=== PATIENT | male | born 1945 | race Caucasian/White ===

== ENCOUNTER → 2021-02-07 12:45 | Outpatient (CLI) | payer OTHER, SELFPAY ==
--- NOTE | 2021-02-07 12:48 | RAD_ITS ---
PROCEDURE: LUMBAR MYELOGRAM DATE OF EXAMINATION: 02/07/2021. INDICATION: Male, 75 years old. Low back pain. PHYSICIAN: Ritesh Irizarry M.D. CONSENT: The patient''s history and physical findings were reviewed. The lumbar myelogram procedure was discussed with the patient prior to signing a consent. SEDATION: Local anesthesia with 3 mL of 1% lidocaine was used. FLUOROSCOPY TIME (if supplied): (2:19) minutes/seconds. 3 images were obtained. Injection Information: 10 cc of ISOVUE-M 200 Number of images obtained: 3 TECHNIQUE: Digital fluoroscopy was used to identify a safe approach for the lumbar myelogram. The back was prepped and draped in usual fashion. Local anesthesia was utilized. Under fluoroscopic guidance a 22-gauge spinal needle was inserted into the spinal canal at the L4-5 level. 10 mL of Isovue 200 M was injected into the spinal canal. There is good opacification of the spinal fluid. The nerve root sheaths are asymmetrically identified. Multilevel disc space narrowing and anterior extradural defects. MRI will follow. RAD/Lumbar Myelogram IMPRESSION: Lumbar Myelogram performed for CT lumbar spine following the myelogram. Electronically Signed: Ritesh Irizarry MD at 14:37 EST , Service support ,
--- NOTE | 2021-02-07 12:49 | CT_ITS ---
STUDY: CT LUMBAR SPINE WITH INTRATHECAL CONTRAST (LUMBAR CT MYELOGRAM) REASON FOR EXAM: Male, 75 years old. Stenosis RADIATION DOSAGE (If Supplied By Facility): CTDIvol = ( 16.74 ) mGy, DLP = ( 545.18 ) mGycm TECHNIQUE: Transaxial images were obtained from the L1 vertebra through the S1 vertebrae, following intrathecal administration of 10 ml of ISOVUE-M 200 contrast material, performed by Dr. Irizarry. Please refer to this physicians technical notes for procedural details. Coronal and sagittal reconstructions were obtained. Individualized dose optimization techniques were used for this CT. COMPARISON: None. FINDINGS: Normal lumbar lordosis. There is no substantial scoliosis. Normal vertebrae of the lumbar spine. There is dependent layering of contrast material in the distal thecal sac. The conus medullaris terminates in a normal position at the L1-L2 level. There is no demonstrated cauda equina nerve root abnormality or intraspinal mass. L1-2: Minimal degree of retrolisthesis of L1 on L2. Minimal anterior defect of the thecal sac. L2-3: Moderate degree of disc space narrowing. Facet joint osteoarthritis and hypertrophy. Mild degree of thickening of the ligamenta flava. Minimal bilateral neural foraminal stenosis. L3-4: Moderate degree of disc space narrowing and disc degeneration. Posterior spondylosis worse on the left side of the midline causing deformity of the thecal sac at that site. Facet joint osteoarthritis and hypertrophy. Mild degree of bilateral neural foraminal stenosis. L4-5: Marked degree of disc space narrowing. Posterior spondylosis. Marked degree of bilateral neural foraminal stenosis worse on the right side. Hypertrophy of the facet joints. L5-S1: Moderate degree of disc space narrowing. Facet joint osteoarthritis. Mild to moderate degree of bilateral neural foraminal stenosis worse on the left side. There are degenerative changes of the bilateral sacroiliac joints. Atherosclerotic plaque formation of the abdominal aorta and the major visceral branches. CT/Spine Lumbar WITH Contrast IMPRESSION: Multilevel disc space narrowing with a bilateral neural foraminal stenosis as described. Electronically Signed: Ritesh Irizarry MD at 14:18 EST , Service support ,
[2021-02-07 13:08] VITALS: BP 156/77; PULSE 90; RESP 16; TEMP 36.6; O2SAT 99; BMI 28.7
[2021-02-07] MEDS: Lidocaine 2% (5ml sdv) 5 ML VIAL.MPF INFILT (13:30)
[2021-02-07 14:07] VITALS: BP 147/77; PULSE 91; RESP 16; O2SAT 96
[2021-02-07 14:32] VITALS: BP 143/79; PULSE 85; RESP 16; O2SAT 94
== END | disposition home or self-care (01) ==
PROVIDERS: PCP Family Medicine; Referring Provider Orthopaedic Surgery; Visit Provider Orthopaedic Surgery
DX: M48.061 Spinal stenosis, lumbar region without neurogenic claudication (principal); M47.26 Other spondylosis with radiculopathy, lumbar region
CPT/HCPCS: 62304; 72132; Q9965

== ENCOUNTER 2023-09-30 09:57 | Emergency (ER) | payer OTHER, SELFPAY ==
[2023-09-30 09:57] VITALS: BP 204/75; PULSE 61; RESP 22; TEMP 35.8; O2SAT 96; BMI 29.7
--- NOTE | 2023-09-30 10:37 | EDS_ITS ---
HPI HPI - GI History of Present Illness Chief Complaint: Flank Pain Detail of Chief Complaint: Left flank, lower quadrant and back pain. Abdominal Pain/Flank Pain Onset: Today and Hours Context: Sudden Onset Timing: Continuous Quality: Sharp Location: Left Flank Current Severity: Mild Maximum Severity: Moderate Worsened by: Nothing Relieved by: Nothing Nausea/Vomiting/Emesis GI Symptom: Positive for Nausea and Vomiting Onset: Today Severity: Mild Diarrhea/Melena/Hematochezia GI Symptom: Negative for Diarrhea, Melena or Hematochezia Associated Symptoms Associated Symptoms: Negative for Dysuria, Frequency, Hematuria or Urgency Narrative Narrative: 78-year-old male history of kidney stones never needed surgery to have them removed. Also prior appendectomy and cholecystectomy. This morning around 6:30 AM he had sudden onset of left flank pain consistent with his prior kidney stones. He did have nausea vomiting associated with the pain. No fever or chills. No dysuria. No recent illness. No abdominal pain the last several days. Prior similar symptoms: Yes Recent Illness/Hospitalization: No PFSH PFSH Medical History Cholecystectomy planned Kidney stone Home Medications ?Medication ?Instructions ?Recorded ?Last Taken ?Type prednisolone 5 mg tablet 5 mg PO DAILY 09/30/23 Unknown History Allergy/AdvReac Type Severity Reaction Status Date / Time No Known Allergies Allergy Verified 09/30/23 10:21 Surgical History History of appendectomy Social History Smoking Status: Never smoker ROS ROS ED ROS Narrative Left flank and abdominal pain. Nausea and vomiting. Constitutional Constitutional ED: Denies chills or fever(s) ENT ENT ED: Denies ear pain Cardiovascular Cardiovascular: Denies chest pain Respiratory/Chest Respiratory/Chest: Denies cough or dyspnea Gastrointestinal Gastrointestinal: Reports abdominal pain, nausea and vomiting; Denies constipation, diarrhea or melena Genitourinary Genitourinary ED: Denies dysuria or hematuria Musculoskeletal Musculoskeletal: Reports back pain; Denies arthralgias Integumentary Reports abscess Neurologic Neurologic: Denies headache(s) Psychiatric Psychiatric: Denies anxiety or depression Endocrine Endocrinology: Denies polydipsia Hematologic/Lymphatic Hematologic/Lymphatic: Denies easy bleeding Allergic/Immunologic Allergic/Immunologic ED: Denies mouth swelling EXAM Physical Exam Narrative Exam Narrative: Well-appearing 78-year-old male. Vital signs are stable afebrile. 2 family members at bedside. H EENT exam unremarkable. Neck nontender. Lungs clear to auscultation. Heart regular rhythm rate about 60 no murmur. Abdomen is soft, nondistended normal bowel sounds without peritoneal signs. Mild left lower quadrant tenderness. No hernia or mass. No pulsatile mass. No distention. Right upper or right lower quadrants are unremarkable. No obstruction. Back nontender. No rash. Moving all 4 extremities. Neurovascular intact. Nontender no edema. Normal strength. Neurologically is awake and alert. Answering questions following commands. Const Vital Signs: 09/30/23 09:57 09/30/23 11:57 09/30/23 12:21 Temperature 96.5 F L 98.3 F Temperature Source Temporal Oral Pulse Rate 61 76 Respiratory Rate 22 H 16 Blood Pressure 204/75 H 165/92 H Blood Pressure Mean 118 116 Pulse Ox 96 Oxygen Delivery Method Room Air Positive well nourished and well developed; Negative for cachectic, contractures or unkempt General Appearance ED: well developed and NAD; Negative for unkempt, cachectic, contractures or pallor Nutritional Appearance: Negative for cachectic HEENT Reports moist mucous membranes normocephalic and atraumatic; Negative for trauma or tenderness Eyes PERRL and EOMs intact bilaterally General Eye ED: Negative for pale conjunctiva, scleral icterus or other Neck no lymphadenopathy, supple and no JVD Carotids: Negative for other Lymph Lymphatic: Negative for other Resp normal respiratory effort and clear to auscultation bilaterally Effort and Inspection: Negative for respiratory distress Auscultation: Negative for rales, rhonchi or wheezes Cardio regular rate, regular rhythm, S1 normal heart sound, S2 normal heart sound and no murmurs Rate: Negative for bradycardia or tachycardic Rhythm: Negative for abnormal rhythm GI non-distended and no masses; Negative for non-tender GI Narrative: Mild left lower quadrant tenderness. No hernia or mass. No pulsatile mass. No peritoneal signs. Inspection: Negative for abdominal distention Auscultation: normoactive bowel sounds Palpation: soft and tender; Negative for guarding, rigid, hepatomegaly, splenomegaly, hernia, mass, pulsatile mass or rebound tenderness present Back/Spine no CVA tenderness General Back: Negative for CVA tenderness Cervical Spine: Negative for cervical spine tenderness Thoracic Spine / Upper Back: Negative for thoracic spinal tenderness Lumbar Spine / Lower Back: Negative for lumbar spinal tenderness Extremity full ROM General Extremety ED: Negative for edema or tenderness General Extremity: Negative for edema Neuro CN's II-XII intact bilaterally and moves all extremities Sensorium / Orientation: alert, oriented to person, oriented to place and oriented to time; Negative for orientation impaired or confused Motor Exam: strength 5/5 throughout; Negative for general weakness Psych mental status grossly normal and thought process normal Appearance: Negative for unkempt Attitude: No agitated Mood & Affect: Negative for depressed, anxious or tearful Skin no wounds General Skin Exam: Negative for jaundice or pallor Lesions: no lesions Rashes: no rashes Trauma: Negative for abrasion Nails: Negative for discolored MDM MDM MDM Narrative Medical decision making narrative: 78-year-old male left flank pain history of kidney stones. CAT scan labs are pending. I will add UA. I do think this is most likely kidney stone different ial would also include UTI, diverticulitis versus other etiologies. He will be treated with IV morphine 6 mg and Zofran for nausea. Repeat exam patient doing well at 12:40 PM. His pain is well-controlled after morphine x 2. I went over his test results and his CAT scan. They are comfortable with him being discharged home. Urine strainer. [place] for pain as needed. Follow-up as needed return if worse. History & Record Review Discussion w/independent historian: Patient and Family Additional record(s) reviewed:: Prior inpatient record, Prior outpatient record, Prior ED visit and Prior labs Lab Data Attestation: I reviewed the patient's lab results. Lab results narrative: CBC normal. White count of 10. H&H is 16 and 47. Platelets 272. Electrolytes show gap 7. BUN and creatinine 23 and 1.2. Glucose 158. Urinalysis shows 250 occult blood. No nitrates. 25-50 red cells. No white cells. 1+ bacteria. Labs: Laboratory Results - last 24 hr 09/30/23 10:35 WBC 10.3 RBC 5.23 Hgb 16.1 Hct 47.6 MCV 91.0 MCH 30.8 MCHC 33.8 RDW Std Deviation 43.2 RDW Coeff of Rick 13.2 Plt Count 272 MPV 10.7 Immature Gran % (Auto) 1.100 H Neut % (Auto) 84.3 H Lymph % (Auto) 10.2 L [place] % (Auto) 4.0 Eos % (Auto) 0.0 Baso % (Auto) 0.4 Absolute Neuts (auto) 8.7 H Absolute Lymphs (auto) 1.05 Nucleated RBC % 0 Sodium 141 Potassium 3.6 Chloride 105 Carbon Dioxide 29.0 Anion Gap 7 BUN 23 H Creatinine 1.26 Estim Creat Clear Calc 56.43 Est GFR (MDRD) Af Amer 71 Est GFR (MDRD) Non-Af 59 L BUN/Creatinine Ratio 18.3 Glucose 158 H Calcium 9.3 Urine Color Yellow Urine Clarity Clear Urine pH 5.0 Ur Specific [place] 1.030 Urine Protein 30 H Urine Glucose (UA) Normal Urine Ketones Negative Urine Occult Blood 250 H Urine Nitrite Negative Urine Bilirubin Negative Urine Urobilinogen Normal Ur Leukocyte Esterase Negative Urine RBC 25-50 SEEN Urine WBC 0 SEEN Ur Squamous Epith Cells 0-5 SEEN Urine Bacteria 1+ Urine Mucus 0 SEEN Radiography Diagnostic Testing: Clinical Impression(s) from Imaging Studies Abdomen/Pelvis CT 09/30/23 11:00 IMPRESSION: Mild left hydronephrosis and left hydroureter due to a 2.5 mm calculus in the distal portion of left ureter. Multiple small bilateral parapelvic cysts more prominent on the left side. Sigmoid diverticulosis. Status post cholecystectomy. Findings suggestive of scarring at the lung bases. Electronically Signed: Ritesh Irizarry MD at 11:29 EDT , Discharge Plan Triage Chief Complaint: Flank Pain ED Provider: Jamal Leon Dx/Rx/DC Orders Prescriptions: No Action prednisolone 5 mg tablet 5 mg PO DAILY Primary Care Provider: Franco Gilbert Referrals: Franco Gilbert DO [Primary Care Provider] - Print Language: Yi
[2023-09-30 10:47] LABS: Mucous, Urine 0 SEEN /hpf (<or=2+); White Blood Cells 0 SEEN /hpf (0-5)
[2023-09-30] MEDS: Morphine 4 MG/ML Syringe 6 MG IV (10:49)
[2023-09-30 10:50] LABS: Absolute Lymphocyte Count 1.05 X10^3/uL (0.83-4.51); Absolute Neutrophil Count 8.7 X10^3/uL (2.0-7.7); Basophil# 0.04 X10^3/uL; Basophil% 0.4 % (0-1); Hematocrit 47.6 % (40-54); Hemoglobin 16.1 g/dL (13.0-16.5); Lymphocyte # 1.05 X10^3/ul (0.83-4.51); Lymphocyte % 10.2 % (19-41); Mean Corp Hgb Conc 33.8 g/dL (32-36); Mean Corpuscular Hgb 30.8 pg (27.0-32.0); Mean Platelet Vol. 10.7 fl (6.2-12.0); Monocyte# 0.41 X10^3/uL; NRBC Flagged by Analyzer 0 % (0-5); Neutrophil # 8.65 X10^3/uL (2.7-7.7); Neutrophil % 84.3 % (47-70); Platelet Count 272 K/mm3 (150-450); RBC Distribution Width CV 13.2 % (11.6-14.6); RBC Distribution Width SD 43.2 fl (35.1-43.9); Red Blood Count 5.23 M/mm3 (4.6-6.2); White Blood Count 10.3 K/mm3 (4.4-11.0)
[2023-09-30] MEDS: Ondansetron 4 MG/2 ML Vial IV (10:50)
[2023-09-30 10:56] LABS: Color, Urine Yellow (Yellow); Glucose, Dipstick Normal (Normal); Ketone-Dipstick Negative (Negative); Leukocyte Esterase-Dipstick Negative /ul (Negative); Nitrite-Dipstick Negative (Negative); Occult Blood-Urine 250 /ul (Negative); Protein-Dipstick 30 mg/dl (Negative); Urine Bilirubin Dipstick Negative (Negative); Urine Clarity Clear (Clear); Urine Urobilinogen Normal (Normal)
--- NOTE | 2023-09-30 11:00 | CT_ITS ---
STUDY: CT ABDOMEN AND PELVIS WITHOUT CONTRAST REASON FOR EXAM: Male, 78 years old. Abdominal pain. RADIATION DOSAGE (If Supplied By Facility): CTDIvol = ( 16.09 ) mGy, DLP = ( 856.05 ) mGycm TECHNIQUE: Transaxial images were obtained from the dome of the diaphragm to the symphysis pubis without oral contrast, and without intravenous contrast. Sagittal and coronal images were reconstructed. Individualized dose optimization techniques were used for this CT. COMPARISON: None. FINDINGS: The visualized lung bases are unremarkable. 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 Normal liver. There are surgical clips in the gallbladder fossa consistent with a prior cholecystectomy. There are multiple benign calcified granulomata of the spleen. Normal pancreas. Normal bilateral adrenal glands. Small right parapelvic cysts. Left perinephric stranding. Mild left hydronephrosis and left hydroureter due to a 2.5 mm calculus in the distal portion of the left ureter. Multiple small left parapelvic cysts. There is a small hiatal hernia. Normal small intestine. There are multiple colonic diverticula consistent with diverticulosis. The appendix is visualized and appears normal. There is diffuse atherosclerotic calcification of the abdominal aorta and its major visceral branches, without a demonstrated aneurysm. Normal inferior vena cava. Normal retroperitoneum. Normal urinary bladder. Central prostatic calcifications. Normal abdominal wall. There are diffuse degenerative changes of the visualized lumbar spine. CT/Abdomen/Pelvis without Cont IMPRESSION: Mild left hydronephrosis and left hydroureter due to a 2.5 mm calculus in the distal portion of left ureter. Multiple small bilateral parapelvic cysts more prominent on the left side. Sigmoid diverticulosis. Status post cholecystectomy. Findings suggestive of scarring at the lung bases. Electronically Signed: Ritesh Irizarry MD at 11:29 EDT ,
[2023-09-30 11:02] LABS: Anion Gap 7 (5-15); BUN 23 mg/dL (7-18); BUN/Creat Ratio 18.3 RATIO (10-20); Calcium,Total 9.3 mg/dL (8.5-10.1); Chloride 105 mmol/L (98-107); Creatinine, Serum 1.26 mg/dL (0.70-1.30); EST Glomerular Filtration Rate 59 mL/min (>60); Est Glom Filt Rate - Afr Amer 71 mL/min (>60); Estimated Creatinine Clearance 56.43 ml/min; Glucose 158 mg/dL (74-106); Potassium 3.6 mmol/L (3.5-5.1); Sodium Level 141 mmol/L (136-145)
[2023-09-30 11:08] LABS: Red Blood Cells-Urine 25-50 SEEN /hpf (0-5)
[2023-09-30 11:09] LABS: Bacteria 1+ /hpf (None Seen); Squamous Epithelial Cells - UA 0-5 SEEN /hpf (0-5)
[2023-09-30] MEDS: Morphine 4 MG/ML Syringe IV (11:29)
[2023-09-30 11:57] VITALS: BP 165/92; PULSE 76; RESP 16
[2023-09-30 12:21] VITALS: TEMP 36.8
[2023-09-30 13:59] VITALS: BP 169/82; PULSE 78; RESP 16; TEMP 36.4; O2SAT 100
== END 2023-09-30 13:15 | disposition home or self-care (01) ==
PROVIDERS: Emergency Provider Emergency Medicine; PCP Family Medicine; Visit Provider Emergency Medicine
DX: N13.2 Hydronephrosis with renal and ureteral calculous obstruction (principal); R11.2 Nausea with vomiting, unspecified; M54.9 Dorsalgia, unspecified; Z87.442 Personal history of urinary calculi; Z90.49 Acquired absence of other specified parts of digestive tract
CPT/HCPCS: 74176; 80048; 81001; 85025; 96374; 96375; 96376; 99283; A4216; J2405